=== PATIENT | male | born 1940 | race Caucasian/White ===

== ENCOUNTER 2016-05-30 20:40 | Emergency (ER) | payer MEDICARE ==
[2016-05-30] MEDS ORDERED: ENOXAPARIN SODIUM 120 MG/0.8 ML SYRINGE SUB-Q SCH (21:00)
[2016-05-30] MEDS ORDERED: WARFARIN SODIUM 5 MG TABLET ONE (21:05)
== END 2016-05-30 21:16 | disposition home or self-care (01) ==
LOC: ED 20:40
DX: I82.B11 Acute embolism and thrombosis of right subclavian vein (principal); I82.A11 Acute embolism and thrombosis of right axillary vein
CPT/HCPCS: 99283 ×2; 96372; 93971; A9270; J1650